=== PATIENT | male | born 1970 | race Caucasian/White ===

== ENCOUNTER 2017-07-13 19:21 | Inpatient (IN) | payer OTHER ==
[~2017-07-13] VITALS: Ht 177.8 cm; Wt 99.8 kg
--- NOTE | ~2017-07-13 | CN ---
Consultation Report [facility] [address] [facility] [place]. [address] NAME: DESTINI ESTRELLA : 74 STATUS : ADM Tiffany PAT#: [id number] AGE: 46 ADM/REG DATE : 07/13/17 MR#: [id number] REPORT SERV DATE: 07/16/17 DICTATED BY: KATIE CASANOVA DATE: 07/15/17 REPORT STATUS : Draft TRANSCRIBED BY: MODL DATE: 07/15/17 DATE OF CONSULTATION: 07/15/2017 REASON FOR CONSULT: Recurrent colon cancer. HISTORY OF PRESENT ILLNESS: The patient is a 46-year-old male with a recent past medical history of colon cancer diagnosed in November of this year after worsening abdominal pain resulting in a colonoscopy that revealed a tumor as well as multiple polyps. He subsequently underwent an extended right hemicolectomy with omentectomy. Pathology from this revealed a 7.5 cm tumor that was an adenocarcinoma with mucinous features with extension to subserosal adipose tissue. He had 04/29 positive lymph nodes. Shortly after this, the patient was started on a FOLFOX treatment. However, after being discharged from skilled nursing in February, the patient was unable to continue undergoing treatment and thus has had no followup since that time. He presented to the emergency department on 07/13 with persistent and worsening abdominal pain. A CT scan at that time revealed a thickening at his ileocolic anastomosis with infiltration of surrounding planes and significant adenopathy. A CT scan with IV contrast of the chest, abdomen, and pelvis obtained yesterday again revealed wall thickening at the anastomosis with fat stranding and associated adenopathy up to [address] of the chest, abdomen, and pelvis was otherwise negative for metastatic disease. PAST MEDICAL HISTORY: Diabetes, hypertension. PAST SURGICAL HISTORY: As per the HPI, Port-A-Cath. SOCIAL: Patient does endorse tobacco use. He denies alcohol or illicit drug use. FAMILY HISTORY: Significant for colon cancer in his maternal grandmother, his mother, and his maternal uncle. REVIEW OF SYSTEMS: Full review of systems was performed. CONSTITUTIONAL: Patient denies fever, chills, weakness. HEENT: Denies visual loss, hearing loss, sore throat. SKIN: Denies rashes or itching. CARDIOVASCULAR: Patient denies chest pain, palpitations, or edema. RESPIRATORY: The patient denies shortness of breath, cough, or sputum. GASTROINTESTINAL: Also complains of diarrhea. He denies nausea or vomiting. GENITOURINARY: Patient denies dysuria. NEUROLOGIC: The patient denies headache, dizziness, syncope, paralysis, numbness or tingling of the extremities. MUSCULOSKELETAL: Patient denies muscle, back pain, joint pain or stiffness. ENDOCRINOLOGY: The patient denies cold or heat intolerance, polyuria, polydipsia. PHYSICAL EXAMINATION: VITAL SIGNS: Patient is afebrile. Vital signs are stable. Consultation Report [place] [id number] [facility] [place]. [address] NAME: DESTINI ESTRELLA : 74 STATUS : ADM Tiffany PAT#: [id number] AGE: 46 ADM/REG DATE : 07/13/17 MR#: [id number] REPORT SERV DATE: 07/16/17 DICTATED BY: KATIE CASANOVA DATE: 07/15/17 REPORT STATUS : Draft TRANSCRIBED BY: RAIANA DATE: 07/15/17 HEENT: Normocephalic, atraumatic. Pupils equal, round, and reactive to light. Extraocular movements are intact. NECK: Supple. Trachea is midline. CARDIOVASCULAR: Regular rate and rhythm. No murmurs, rubs, gallops. PULMONARY: Clear to auscultation bilaterally. ABDOMEN: Soft, tender to palpation in the right and left upper quadrant without rebound or guarding. A well-healed midline scar. EXTREMITIES: Patient moves all extremities. Has 5/5 strength. NEUROLOGIC: Cranial nerves 2 through 12 are grossly intact. LAB: White blood cell count is normal as is the BMP. CEA is 943. ASSESSMENT AND PLAN: The patient is a 46-year-old male with recent past medical history of stage IIIB colon cancer with what appears to be a local recurrence. After a discussion with Medical Oncology, Dr. Casanova tentative plans are in place for a neoadjuvant chemotherapy with plans for reimaging at which time, further surgical decisions will be made. We will await recommendations from GI for possible colonoscopy for tissue confirmation. The patient was seen and examined with Dr. Casanova. DICTATED BY: DICTATOR UNKNOWN [facility]/MODL Aida Casanova M.D. / [id number]
--- NOTE | ~2017-07-13 | DS ---
Discharge Summary [place] [address] [place]. [address] NAME: DESTINI ESTRELLA : 74 STATUS : DIS IN PAT#: [id number] AGE: 46 ADM/REG DATE : 07/13/17 MR#: [id number] REPORT SERV DATE: 07/20/17 DICTATED BY: DEMETRIO TODD II DATE: 07/19/17 REPORT STATUS : Draft TRANSCRIBED BY: MODL DATE: 07/19/17 ADMISSION DATE: 07/13/2017 DISCHARGE DATE: 07/19/2017 DISCHARGE DIAGNOSES: 1. Epigastric/right upper quadrant abdominal pain. 2. Nausea without vomiting. 3. Type 2 diabetes. 4. Chronic hypertension. 5. Oral candidiasis. 6. Stage III colon cancer with likely recurrence. CONSULTATIONS: 1. Dr. Keke Lewis, [facility]. 2. Dr. Jono Kaplan, General Surgery. PERTINENT TESTS AND PROCEDURES: 1. CT of abdomen and pelvis without contrast, 07/13/2017. a. Thickening of bowel wall about ileocolic anastomosis with infiltration of surrounding fat planes and adjacent adenopathy within mesentery inferior to the anastomosis site, suspicious for local recurrent malignancy at anastomosis site with adjacent bertha metastatic disease until proven otherwise. b. Cholelithiasis. No acute cholecystitis pattern. 2. CT of chest, abdomen, and pelvis with contrast, 07/14/2017. Impression:. a. No evidence of intrathoracic malignancy. b. Mild bibasilar subsegmental atelectasis. c. Anterior right abdominal ileocolonic [id number] anastomosis with irregular wall thickening and adjacent inflammatory fat stranding. Local disease recurrence at this site may be present as there is associated adjacent necrotic adenopathy involving several nodes in the anterior abdomen measuring up to 3 x 2.8 cm. No additional sites of metastases in the abdomen or pelvis. Two simple hepatic cysts present. Mild cholelithiasis. Small fat-containing umbilical hernia. HOSPITAL COURSE: Please refer to history and physical dated 07/14/[address] Manuelito Biggs for complete details pertaining to the patient's initial presentation upon admission and health history. Briefly, the patient is a 46-year-old male with a past medical history significant for metastatic colon cancer, who presented to the emergency room on 07/13/2017 with complaints of abdominal pain. Initial diagnostic workup included CT scan of abdomen and pelvis, which showed suspicion for recurrence of cancer at the anastomotic site with concern for adjacent bertha metastatic disease. The patient was admitted for further evaluation and recommendations for stage III colon Discharge Summary [address] [place] [address] NAME: DESTINI ESTRELLA : 74 STATUS : DIS IN PAT#: [id number] AGE: 46 ADM/REG DATE : 07/13/17 MR#: [id number] REPORT SERV DATE: 07/20/17 DICTATED BY: DEMETRIO TODD II DATE: 07/19/17 REPORT STATUS : Draft TRANSCRIBED BY: MODL DATE: 07/19/17 cancer with presumed local recurrence. Noteworthy to mention that the patient was diagnosed with colon cancer in November of this year secondary to worsening abdominal pain, resulting in colonoscopy that revealed a tumor as well as multiple polyps. The patient has 04/29 positive lymph nodes. The patient was started on chemotherapy with FOLFOX treatment. At the time of diagnosis[facility] The patient continued treatment throughout incarceration; however, upon [facility] in [facility], the patient was unable to continue undergoing treatment and has had no followup since that time. Dr. Keke Lewis, [facility] was consulted on 07/14/2017 for evaluation of metastatic cancer in the setting of concern for local recurrence. [facility] also consulted Dr. Kaplan, General Surgery, for evaluation and surgical recommendations. Current plan of treatment includes 3 cycles of chemotherapy and then surgical resection. The patient's first treatment with FOLFOXIRI was initiated during this admission. The patient tolerated procedure well with only complaint being mild nausea with 2 episodes of vomiting. The patient will be discharged today and follow up at [facility]'s office this afternoon for Neulasta injection. The patient will then follow up with Dr. Keke Lewis on 07/22/2017. 1. Stage III colon cancer with presumed local recurrence. The patient received first dose of chemotherapy with FOLFOXIRI during this admission. Will complete 3 cycles of chemotherapy as an outpatient and then be evaluated for surgical resection. The patient to receive Neulasta injection today upon discharge from hospital. 2. Epigastric/right upper quadrant abdominal pain. This has been present throughout admission. The patient rates the pain as deep and dull, 5/10 on the pain scale. Likely related to colon cancer. The patient has history of extended right hemicolectomy with omentectomy. The patient will be provided prescription for hydrocodone 5/325 mg tablet p.o. every four hours as needed for pain. 3. Nausea without vomiting. The patient had two episodes of vomiting yesterday; however, none today. This is secondary to chemotherapy. The patient will be provided prescriptions for antiemetics upon discharge. 4. Type 2 diabetes. The patient's A1c was reported to be 7.0 on admission. Blood glucose has remained elevated secondary to steroid therapy given along with chemotherapy. Blood glucose has ranged between 177 and 184 today. The patient's home medications included metformin 500 mg p.o. twice daily; however, the patient states he has not been taking this medication on a regular basis. The patient was provided prescription for metformin and this medicine will be restarted today upon discharge. family living educator was also consulted and the patient was provided instructions with True Metrix meter. The patient will be provided prescription for True Metrix kit, which includes 100 strips and lancets upon discharge. The patient to check blood glucose twice daily. 5. Oral candidiasis. This was present upon admission. The patient will finish 7-day treatment of nystatin upon discharge. Mouth Kote spray as needed for comfort. 6. Hypertension. The patient's home medications included lisinopril 20 mg tablet p.o. daily. The patient has not been taking any of his home medications secondary to release from [facility] in [facility] due to financial issues. The patient's blood pressure has Discharge Summary [address] [address] NAME: DESTINI ESTRELLA : 74 STATUS : DIS IN PAT#: [id number] AGE: 46 ADM/REG DATE : 07/13/17 MR#: [id number] REPORT SERV DATE: 07/20/17 DICTATED BY: DEMETRIO TODD II DATE: 07/19/17 REPORT STATUS : Draft TRANSCRIBED BY: ARIANA DATE: 07/19/17 been elevated during this admission with systolic blood pressure ranging in the high 160s and 70s. Lisinopril was increased to 30 mg p.o. daily. The patient responded well and systolic blood pressure is now well controlled. The patient will be provided prescription for lisinopril upon discharge. The patient is aware medication dose has been increased. 7. Routine health maintenance. The patient has no primary care provider. Social Work was consulted for assistance in identifying primary care provider that will agree to see the patient. The patient was instructed on the importance of establishing relationship with new PCP within two weeks of discharge for routine health maintenance and management of comorbidities to include type 2 diabetes and hypertension. DISCHARGE CONDITION: At time of discharge, the patient is hemodynamically stable. DISCHARGE DIET: 1800 calorie ADA diet. DISCHARGE MEDICATIONS: 1. Lipitor 20 mg tablet p.o. daily at bedtime. 2. Lisinopril 30 mg tablet p.o. daily. 3. Nystatin 500,000 units per 5 mL, swish and spit 5 mL p.o. four times daily, continue through 07/21/2017. 4. Protonix 40 mg tablet p.o. daily. 5. MiraLAX 17 g p.o. daily, hold for diarrhea. 6. Tylenol 325 mg tablet, take 650 mg every four hours as needed, not to exceed a total of 4000 mg daily. 7. Metformin 500 mg tablet p.o. twice daily. 8. [place] 5/325 mg tablet p.o. every four hours as needed for pain. 9. Zofran 8 mg tablet p.o. every 8 hours as needed. 10.Mouth Kote dry mouth spray over the counter as needed. 11.Compazine 10 mg tablet p.o. every 6 hours as needed. Case Management has been consulted for med assist to include all prescriptions provided at discharge. DISPOSITION INSTRUCTIONS: 1. Follow up with [facility] today for Neulasta injection. 2. Follow up with Dr. Keke Lewis, [facility], 07/22/2017, appointment time pending. 3. Establish relationship with new primary care provider within two weeks for management of routine health maintenance and comorbidities. The patient was instructed to return to the emergency department for any acute onset of fever 100.4 or higher lasting more than one hour, intractable chills, nausea, vomiting, diarrhea, abdominal pain, or any other health concerns that are deviations from his baseline status at the time of this discharge. [facility]/MODL Discharge Summary [place] [address] [facility] [place]. [address] NAME: DESTINI ESTRELLA : 74 STATUS : DIS IN [facility]#: [id number] AGE: 46 ADM/REG DATE : 07/13/17 MR#: [id number] REPORT SERV DATE: 07/20/17 DICTATED BY: DEMETRIO TODD II DATE: 07/19/17 REPORT STATUS : Draft TRANSCRIBED BY: ARIANA DATE: 07/19/17 WINSOME Li Demetrio Todd II, MD / [id number] CC: Demetrio Todd II, MD
--- NOTE | ~2017-07-13 | HP ---
History And Physical [place] [address] [place]. [address] NAME: DESTINI ESTRELLA : 74 STATUS : ADM Tiffany PAT#: [id number] AGE: 46 ADM/REG DATE : 07/13/17 MR#: [id number] REPORT SERV DATE: 07/14/17 DICTATED BY: MANUELITO PASCAL DATE: 07/14/17 REPORT STATUS : Draft TRANSCRIBED BY: MODL DATE: 07/14/17 DATE OF ADMISSION: 07/13/2017 CHIEF COMPLAINT: Abdominal pain. HISTORY OF PRESENT ILLNESS: This is a 46-year-old male with history of metastatic colon cancer, who presents to the emergency room at [facility] with the above-mentioned complaint. History is obtained from the patient and reviewing data available on the [facility]. According to Mr. Estrella, he was recently incarcerated for 18 months somewhere in [place]. During that time, he started having abdominal pain and started having hematochezia. He had an extensive workup done in November 2016 and was found to have metastatic colon cancer. In December 2016, he underwent partial colectomy and then this was followed by chemotherapy while he was incarcerated. He was discharged from assisted in February 2017 and since then, has had no followup and has abruptly stopped his chemotherapy. He continues to have very difficult time finding a PCP, who will accept him or being able to reach subspecialty care with Oncology. He apparently has tried going to several hospitals, but nothing has come out of it. In the last two days or so, he has started having increasing abdominal pain and caused him great concern and he decided to come to the emergency room at [facility] to be evaluated. In the emergency room, a CT scan of his abdomen and pelvis was ordered and this showed suspicion for recurrence in cancer at the anastomotic site. He also had some lymph nodes. No prior records are available at this time and Hospitalist Service is asked to admit him for further workup and treatment. At the time of my evaluation, he denied any chest pain or palpitations. He had no orthopnea. He had no cough, hemoptysis, night sweats, or weight loss. He has not had any recent falls or loss of consciousness. No history of fevers, chills, nausea, vomiting, diarrhea, or dysuria. He has not had any hematemesis, hematochezia, or hematuria at least since his surgery. No other history of recent travel or exposures other than those mentioned above. PAST MEDICAL HISTORY: Significant for history of metastatic colon cancer. SOCIAL HISTORY: He does not smoke, drink, or use recreational drugs. FAMILY HISTORY: Noncontributory. MEDICATIONS AT HOME: Reviewed by me in the chart today and reordered by me. REVIEW OF SYSTEMS: As in history of present illness. All other systems were reviewed in detail and are quite unremarkable. History And Physical [address] [address] NAME: DESTINI ESTRELLA : 74 STATUS : ADM Tiffany PAT#: [id number] AGE: 46 ADM/REG DATE : 07/13/17 MR#: [id number] REPORT SERV DATE: 07/14/17 DICTATED BY: MANUELITO PASCAL DATE: 07/14/17 REPORT STATUS : Draft TRANSCRIBED BY: ARIANA DATE: 07/14/17 PHYSICAL EXAMINATION: GENERAL: This is a pleasant 46-year-old, not in any acute distress. HEENT: His head is atraumatic, normocephalic. He is alert, awake, oriented to time, place, and person. Pupils are equal, reacting to light and accommodating. External ocular muscles are intact. Membranes are moist and pink. Sclerae are nonicteric. NECK: Supple with no jugular venous distention, lymphadenopathy, or thyromegaly. LUNGS: Clear to auscultation with no wheezes, rubs, or crackles. HEART: Sounds were regular with no murmurs, rubs, or gallops. ABDOMEN: Soft and nontender. Bowel sounds are present. EXTREMITIES: Showed no cyanosis, clubbing, or edema. NEURO: Grossly intact. No focal sensory or motor deficits. Higher functions appeared intact. VITAL SIGNS: His temperature today was 97.6, pulse 109, respirations were 18 a minute, and blood pressure upon arrival was 177/93. Oxygen saturations were 99%, breathing 2 L of oxygen via nasal cannula. LABORATORY DATA: Reviewed on the [facility] system showed sodium of 141, potassium 3.6, chloride 108, and CO2 of 23. BUN was 9 with a creatinine of 0.91 and blood glucose was 208. His alkaline phosphatase, ALT, and AST were within normal limits. Lipase was 145. CBC showed a normal white blood cell count, hemoglobin was 12.3, hematocrit 39.7, and platelet count was 295,000. His urine drug screen was negative today as well. Urinalysis was unremarkable. Films of the CT scan of the abdomen and pelvis done in the emergency room today, films were reviewed by me on the PACS today and interpreted by me. Official radiology report was also reviewed. Per the Radiology report, there is thickening of the bowel wall about the ileocolic anastomosis with infiltration of surrounding fat planes with adjacent adenopathy within the mesentery inferior to the anastomotic site suspicious for local recurrent malignancy at the anastomotic site with adjacent bertha metastatic disease. IMPRESSION: 1. Abdominal pain. 2. Metastatic colon cancer with recurrence. 3. Hyperglycemia. PLAN: We will admit Mr. Estrella to the Hospitalist Service to the Oncology floor for a 24- hour observation period. We will establish pain control with morphine intravenously on an as-needed basis in small doses and consult Oncology to see him in the morning. We will need to get his records from his prior facility as well. Meanwhile, we will start him on blood sugar control with NovoLog given subcutaneously per sliding scale. We will check his A1c. We will also place him on unfractionated heparin for DVT prophylaxis while here. Further recommendations will follow after Oncology has had a chance to see him. /ARIANA Manuelito Pascal M.D. History And Physical [address] [address] NAME: DESTINI ESTRELLA : 74 STATUS : ADM Tiffany PAT#: [id number] AGE: 46 ADM/REG DATE : 07/13/17 MR#: [id number] REPORT SERV DATE: 07/14/17 DICTATED BY: MANUELITO PASCAL DATE: 07/14/17 REPORT STATUS : Draft TRANSCRIBED BY: ARIANA DATE: 07/14/17 / [id number] CC: David Moseley II, MD
--- NOTE | ~2017-07-13 | CN ---
Consultation Report [facility] [address] [place]. [address] NAME: DESTINI ESTRELLA : 74 STATUS : ADM Tiffany PAT#: [id number] AGE: 46 ADM/REG DATE : 07/13/17 MR#: [id number] REPORT SERV DATE: 07/14/17 DICTATED BY: ISAIAS LEWIS DATE: 07/14/17 REPORT STATUS : Draft TRANSCRIBED BY: MODL DATE: 07/14/17 DATE OF CONSULTATION: REASON FOR CONSULTATION: Metastatic colon cancer. HISTORY OF PRESENT ILLNESS: Mr. Estrella is a 46-year-old, who states that he was diagnosed with colon cancer on 11/09. He states he presented with increasing abdominal pain. He had a colonoscopy which showed multiple polyps, several of them had cancer. He was incarcerated at that time and was treated in [place] at the [facility]. There, he had a surgical resection of about 10 feet of his large intestine. He states he had about 27 polyps, seven or eight of them were cancerous. He is unsure of his stage at the time of his surgery, but states he was near metastatic. He was started on chemotherapy with FOLFOX and received this until 03/01 when [facility]. Since that time, he has not had any medical care. He lives in [place] and has been hospitalized both at [place] and [place] for abdominal pain over the recent months. In the emergency room, he had a noncontrasted CT of the abdomen, which revealed thickening of clark at his ileocolic anastomosis with infiltration of the surrounding planes and adenopathy, suspicious for recurrent malignant disease. This does measure up to 2.3 cm in diameter. A urine drug screen was performed and was negative. PAST MEDICAL HISTORY: Significant for diabetes, hypertension, and right ankle surgery. SOCIAL HISTORY: He was previously incarcerated, but now lives in [place] with his . He smokes tobacco. He does not use any alcohol. FAMILY HISTORY: Significant for a mother who of colon cancer at age 33 and a grandmother who also had colon cancer. Both of these also had multiple polyps. REVIEW OF SYSTEMS: Significant for abdominal pain and diarrhea. The diarrhea has been since his surgery. The abdominal pain seems to be worse with eating. PHYSICAL EXAMINATION: VITAL SIGNS: Temperature 97.8, pulse 79, respiratory rate 17, saturations 99%, blood pressure is 173/97. GENERAL: He is a well-developed, well-nourished male with multiple tattoos. LUNGS: Clear to auscultation. HEART: Regular rate and rhythm without murmur, gallop, or rub. ABDOMEN: He has a well-healed midline incision. He has some tenderness with palpation, but no rebound or guarding. EXTREMITIES: He has no clubbing, cyanosis, or edema. NEURO: Nonfocal. LABORATORY WORK: Reveals a white count of 9.9, hemoglobin 12.3, platelet count 292. His liver enzymes are normal. Consultation Report [place] [id number] [facility] [place]. [address] NAME: DESTINI ESTRELLA : 74 STATUS : ADM Tiffany PAT#: [id number] AGE: 46 ADM/REG DATE : 07/13/17 MR#: [id number] REPORT SERV DATE: 07/14/17 DICTATED BY: ISAIAS LEWIS DATE: 07/14/17 REPORT STATUS : Draft TRANSCRIBED BY: ARIANA DATE: 07/14/17 ASSESSMENT AND PLAN: History of colon cancer, likely now metastatic, new to this area and looking for assistance in care of his cancer. I am going to set him up for a CT scan with contrast of his chest, abdomen, and pelvis and a CEA. We will need to get records from [facility] to find out his previous treatment and pathology. We will [facility] to assist. For nausea, he has Phenergan and Zofran ordered. For pain, he has 1-2 mg of morphine every three hours, but states he is still having some discomfort. We will see if we can adjust his medications. Thank you very much for the consultation. JAIDA/ARIANA Isaias Lewis M.D. / [id number] CC: David Moseley II, MD
[2017-07-13 19:48] LABS: BASOPHILS 0.2 %; BASOPHILS ABSOLUTE 0.02 10/3/uL (0.0-0.16); EOSINOPHILS 1.9 %; EOSINOPHILS ABSOLUTE 0.19 10/3/uL (0.0-0.53); ER CBC TAT 0 Hrs 07 Mins; HEMATOCRIT 39.3 % (40.0-51.0); HEMOGLOBIN 12.3 g/dL (13.6-17.8); IMMATURE GRANULOCYTES 0.4 %; IMMATURE GRANULOCYTES ABSOLUTE 0.04 10/3/uL (0.0-0.11); LYMPHOCYTES ABSOLUTE 2.18 10/3/uL (0.67-4.30); MEAN CORPUS HGB CONC 31.3 g/dL (32.0-36.0); MEAN CORPUSCULAR HEMOGLOB 23.7 pg (26.0-34.0); MEAN CORPUSCULAR VOLUME 75.7 fL (80-100); MEAN PLATELET VOLUME 8.7 fL (9.2-13.0); MONOCYTES 5.3 %; MONOCYTES ABSOLUTE 0.52 10/3/uL (0.21-1.20); NEUTROPHILS 70.2 %; NEUTROPHILS ABSOLUTE 6.95 10/3/uL (2.02-8.40); PLATELET COUNT 295 10/3/uL (150-400); RBC DISTRIBUTION WIDTH 15.4 % (12.0-16.0); RED CELL COUNT 5.19 10/6/uL (4.7-6.1); WHITE BLOOD CELLS 9.9 10/3/uL (4.5-10.5)
[2017-07-13 19:50] LABS: MANUAL DIFF NO %
[2017-07-13 19:55] LABS: ASCORBIC ACID (UR NOT ORDER) NEG (NEG); BILIRUBIN, URINE NEGATIVE (NEG); ER URINALYSIS TAT 0 Hrs 14 Mins; KETONE, URINE NEGATIVE (NEG); LEUKOCYTE ESTERASE(NOT OR NEG (NEG); NITRITE (URINE) NEG (NEG); WBC (NOT ORDERED) (RFLEX) 2 (0-5)
[2017-07-13 20:05] LABS: A/G RATIO 0.9 (0.7-1.9); ALBUMIN 3.5 G/DL (3.5-5.0); ALKALINE PHOSPHATASE 105 U/L (45-117); BUN (BLOOD UREA NITROGEN) 9 MG/DL (6-23); CALCIUM, SERUM 8.6 MG/DL (8.5-10.4); CHLORIDE, SERUM 108 MMOL/L (96-112); CO2 (CARBON DIOXIDE) 23 MMOL/L (24-34); CREATININE 0.91 MG/DL (0.70-1.30); GFR AFRICAN AMERICAN 118 ML/MIN (>=60); GFR NON AFRICAN AMERICAN 102 ML/MIN (>=60); GLOBULIN 3.8 G/DL (2.5-4.1); GLUCOSE, SERUM 208 MG/DL (60-99); POTASSIUM, SERUM 3.6 MMOL/L (3.5-5.3); SGOT(AST) 12 U/L (5-40); SGPT(ALT) 18 U/L (5-65); SODIUM, SERUM 141 MMOL/L (135-148); TOTAL BILIRUBIN 0.3 MG/DL (0-1.2); TOTAL PROTEIN 7.3 G/DL (6.0-8.5)
[2017-07-13 21:18] LABS: AMPHETAMINES (NOT ORD) NEG (NEG); BARBITURATES (NOT ORDERED NEG (NEG); BENZODIAZEPINES (NOT ORD) NEG (NEG); CANNABINOIDS (THC) NEG (NEG); COCAINE (NOT ORDERED) NEG (NEG); OPIATES NEG (NEG); PHENCYCLIDINE(PCP) NEG (NEG); TRICYCLICS NEG (NEG)
[2017-07-13] MEDS ORDERED: GLUCPH PO (23:09)
[2017-07-14] MEDS ORDERED: ZOFRAN8 PO (01:24)
[2017-07-14] MEDS ORDERED: PRILO PO (01:24)
[2017-07-14] MEDS ORDERED: LIPITOR20 PO (01:25)
[2017-07-14] MEDS ORDERED: PRIN20 PO (01:25)
[2017-07-14 11:26] LABS: CEA 943.4 NG/ML
[2017-07-14 13:47] LABS: BUN (BLOOD UREA NITROGEN) 11 MG/DL (6-23); CALCIUM, SERUM 8.5 MG/DL (8.5-10.4); CHLORIDE, SERUM 108 MMOL/L (96-112); CO2 (CARBON DIOXIDE) 22 MMOL/L (24-34); CREATININE 0.68 MG/DL (0.70-1.30); GFR AFRICAN AMERICAN 135 ML/MIN (>=60); GFR NON AFRICAN AMERICAN 116 ML/MIN (>=60); GLUCOSE, SERUM 132 MG/DL (60-99); PHOSPHORUS, SERUM 2.8 MG/DL (2.5-4.5); SODIUM, SERUM 139 MMOL/L (135-148)
[2017-07-15 07:23] LABS: BASOPHILS 0.2 %; BASOPHILS ABSOLUTE 0.02 10/3/uL (0.0-0.16); EOSINOPHILS 1.6 %; EOSINOPHILS ABSOLUTE 0.15 10/3/uL (0.0-0.53); HEMATOCRIT 39.1 % (40.0-51.0); HEMOGLOBIN 12.2 g/dL (13.6-17.8); IMMATURE GRANULOCYTES 0.4 %; IMMATURE GRANULOCYTES ABSOLUTE 0.04 10/3/uL (0.0-0.11); LYMPHOCYTES 20.3 %; LYMPHOCYTES ABSOLUTE 1.89 10/3/uL (0.67-4.30); MANUAL DIFF NO %; MEAN CORPUS HGB CONC 31.2 g/dL (32.0-36.0); MEAN CORPUSCULAR HEMOGLOB 23.1 pg (26.0-34.0); MEAN CORPUSCULAR VOLUME 74.2 fL (80-100); MEAN PLATELET VOLUME 8.7 fL (9.2-13.0); MONOCYTES 6.8 %; MONOCYTES ABSOLUTE 0.63 10/3/uL (0.21-1.20); NEUTROPHILS 70.7 %; NEUTROPHILS ABSOLUTE 6.59 10/3/uL (2.02-8.40); PLATELET COUNT 278 10/3/uL (150-400); RBC DISTRIBUTION WIDTH 15.4 % (12.0-16.0); RED CELL COUNT 5.27 10/6/uL (4.7-6.1); WHITE BLOOD CELLS 9.3 10/3/uL (4.5-10.5)
[2017-07-15 07:37] LABS: BUN (BLOOD UREA NITROGEN) 8 MG/DL (6-23); CALCIUM, SERUM 8.7 MG/DL (8.5-10.4); CHLORIDE, SERUM 107 MMOL/L (96-112); CO2 (CARBON DIOXIDE) 25 MMOL/L (24-34); CREATININE 0.71 MG/DL (0.70-1.30); GFR AFRICAN AMERICAN 132 ML/MIN (>=60); GFR NON AFRICAN AMERICAN 114 ML/MIN (>=60); GLUCOSE, SERUM 150 MG/DL (60-99); POTASSIUM, SERUM 3.9 MMOL/L (3.5-5.3); SODIUM, SERUM 141 MMOL/L (135-148)
[2017-07-17 05:27] LABS: BASOPHILS 0 %; EOSINOPHILS 0 %; HEMOGLOBIN 12.3 g/dL (13.6-17.8); IMMATURE GRANULOCYTES 0.2 %; IMMATURE GRANULOCYTES ABSOLUTE 0.02 10/3/uL (0.0-0.11); LYMPHOCYTES 3.9 %; LYMPHOCYTES ABSOLUTE 0.51 10/3/uL (0.67-4.30); MEAN CORPUS HGB CONC 30.8 g/dL (32.0-36.0); MEAN CORPUSCULAR VOLUME 74.9 fL (80-100); MEAN PLATELET VOLUME 8.8 fL (9.2-13.0); MONOCYTES 4.4 %; MONOCYTES ABSOLUTE 0.57 10/3/uL (0.21-1.20); NEUTROPHILS 91.5 %; NEUTROPHILS ABSOLUTE 11.91 10/3/uL (2.02-8.40); PLATELET COUNT 297 10/3/uL (150-400); RBC DISTRIBUTION WIDTH 15.1 % (12.0-16.0); RED CELL COUNT 5.34 10/6/uL (4.7-6.1)
[2017-07-17 05:34] LABS: MANUAL DIFF NO %
[2017-07-17 05:40] LABS: CALCIUM, SERUM 9.1 MG/DL (8.5-10.4); CHLORIDE, SERUM 105 MMOL/L (96-112); CO2 (CARBON DIOXIDE) 26 MMOL/L (24-34); CREATININE 0.88 MG/DL (0.70-1.30); GFR AFRICAN AMERICAN 121 ML/MIN (>=60); GFR NON AFRICAN AMERICAN 104 ML/MIN (>=60); SODIUM, SERUM 140 MMOL/L (135-148)
[2017-07-17 05:51] LABS: BUN (BLOOD UREA NITROGEN) 16 MG/DL (6-23); GLUCOSE, SERUM 206 MG/DL (60-99); POTASSIUM, SERUM 4.7 MMOL/L (3.5-5.3)
[2017-07-18 05:18] LABS: BASOPHILS 0.1 %; BASOPHILS ABSOLUTE 0.01 10/3/uL (0.0-0.16); EOSINOPHILS 0.4 %; EOSINOPHILS ABSOLUTE 0.04 10/3/uL (0.0-0.53); HEMOGLOBIN 11.2 g/dL (13.6-17.8); IMMATURE GRANULOCYTES 0.2 %; IMMATURE GRANULOCYTES ABSOLUTE 0.02 10/3/uL (0.0-0.11); LYMPHOCYTES 10.1 %; LYMPHOCYTES ABSOLUTE 1.11 10/3/uL (0.67-4.30); MEAN CORPUS HGB CONC 31.1 g/dL (32.0-36.0); MEAN CORPUSCULAR HEMOGLOB 23.2 pg (26.0-34.0); MEAN CORPUSCULAR VOLUME 74.5 fL (80-100); MEAN PLATELET VOLUME 8.8 fL (9.2-13.0); MONOCYTES 4.2 %; MONOCYTES ABSOLUTE 0.46 10/3/uL (0.21-1.20); NEUTROPHILS ABSOLUTE 9.32 10/3/uL (2.02-8.40); PLATELET COUNT 266 10/3/uL (150-400); RBC DISTRIBUTION WIDTH 15.5 % (12.0-16.0); RED CELL COUNT 4.83 10/6/uL (4.7-6.1)
[2017-07-18 05:26] LABS: BUN (BLOOD UREA NITROGEN) 18 MG/DL (6-23); CALCIUM, SERUM 8.6 MG/DL (8.5-10.4); CHLORIDE, SERUM 107 MMOL/L (96-112); CO2 (CARBON DIOXIDE) 27 MMOL/L (24-34); GFR AFRICAN AMERICAN 142 ML/MIN (>=60); GFR NON AFRICAN AMERICAN 122 ML/MIN (>=60); GLUCOSE, SERUM 192 MG/DL (60-99); SODIUM, SERUM 139 MMOL/L (135-148)
[2017-07-18 05:40] LABS: MANUAL DIFF NO %
[2017-07-18] MEDS ORDERED: COMP10B PO (12:58)
[2017-07-19 04:08] LABS: BASOPHILS 0.4 %; BASOPHILS ABSOLUTE 0.02 10/3/uL (0.0-0.16); EOSINOPHILS 2.8 %; EOSINOPHILS ABSOLUTE 0.16 10/3/uL (0.0-0.53); HEMATOCRIT 36.8 % (40.0-51.0); HEMOGLOBIN 11.3 g/dL (13.6-17.8); IMMATURE GRANULOCYTES 0.2 %; IMMATURE GRANULOCYTES ABSOLUTE 0.01 10/3/uL (0.0-0.11); LYMPHOCYTES 25.1 %; LYMPHOCYTES ABSOLUTE 1.41 10/3/uL (0.67-4.30); MEAN CORPUS HGB CONC 30.7 g/dL (32.0-36.0); MEAN CORPUSCULAR VOLUME 74.9 fL (80-100); MEAN PLATELET VOLUME 8.8 fL (9.2-13.0); MONOCYTES ABSOLUTE 0.11 10/3/uL (0.21-1.20); NEUTROPHILS 69.5 %; NEUTROPHILS ABSOLUTE 3.91 10/3/uL (2.02-8.40); PLATELET COUNT 237 10/3/uL (150-400); RBC DISTRIBUTION WIDTH 15.6 % (12.0-16.0); RED CELL COUNT 4.91 10/6/uL (4.7-6.1)
[2017-07-19 04:09] LABS: WHITE BLOOD CELLS 5.6 10/3/uL (4.5-10.5)
[2017-07-19 04:10] LABS: MANUAL DIFF NO %
[2017-07-19 04:20] LABS: BUN (BLOOD UREA NITROGEN) 16 MG/DL (6-23); CALCIUM, SERUM 8.2 MG/DL (8.5-10.4); CHLORIDE, SERUM 107 MMOL/L (96-112); CO2 (CARBON DIOXIDE) 27 MMOL/L (24-34); CREATININE 0.68 MG/DL (0.70-1.30); GFR AFRICAN AMERICAN 135 ML/MIN (>=60); GFR NON AFRICAN AMERICAN 116 ML/MIN (>=60); GLUCOSE, SERUM 177 MG/DL (60-99); POTASSIUM, SERUM 3.9 MMOL/L (3.5-5.3); SODIUM, SERUM 140 MMOL/L (135-148)
[2017-07-19 04:34] LABS: HYPOCHROMIA 1+ (3-10/OIF) (0-2/OIF); MICROCYTES 1+ (5-10/OIF) (0-5/OIF); PLATELET ESTIMATE ADQ (ADEQUATE)
[2017-07-19] MEDS ORDERED: ZESTRIL30 MG PO (11:48)
[2017-07-19] MEDS ORDERED: NYS500UDL PO (11:49)
[2017-07-19] MEDS ORDERED: PROTONIX PO (11:50)
[2017-07-19] MEDS ORDERED: MIRALAX POWDER1 PKT PO (11:52)
[2017-07-19] MEDS ORDERED: T PO (11:53)
[2017-07-19] MEDS ORDERED: GLUCPH PO (11:54)
[2017-07-19] MEDS ORDERED: NORCO1 TA1 PO (11:57)
[2017-07-19] MEDS ORDERED: ZOFRANODT8 PO (11:58)
[2017-07-19] MEDS ORDERED: SALIVA SUBSTITUTE (12:01)
== END 2017-07-19 12:57 | disposition home or self-care (01) | DRG 375 ==
LOC: ER 19:21 → ER/OF 23:27 → 4EA 23:27
PROVIDERS: Emergency Medicine; Internal Medicine; Internal Medicine Hematology & Oncology; Nurse Practitioner Family; Specialist
DX: C18.9 Malignant neoplasm of colon, unspecified (principal); B37.0 Candidal stomatitis; E11.65 Type 2 diabetes mellitus with hyperglycemia; I10 Essential (primary) hypertension; F17.210 Nicotine dependence, cigarettes, uncomplicated; Z79.84 Long term (current) use of oral hypoglycemic drugs; Z79.899 Other long term (current) drug therapy; R11.0 Nausea
CPT/HCPCS: 71260; 74176; 74177; 80048; 80053; 80305; 81001; 82378; 82962; 83036; 83690; 83735; 84100; 85025; 96374; 99285; A9270-GY; J0640; J1170; J1885; J2405; J9190; J9206; J9263